=== PATIENT | female | born 1975 | race Caucasian/White ===

== ENCOUNTER 2022-10-04 15:12 | Outpatient (CLI) | payer BC, SELFPAY | END 2022-10-04 15:13 | disposition home or self-care (01) | LOC: NFLDREF 15:12 | PROVIDERS: Visit Provider Physician Assistant | DX: Z01.818 Encounter for other preprocedural examination (principal) | CPT/HCPCS: 80048 ==

== ENCOUNTER 2022-10-12 08:21 | Day surgery (SDC) | payer BC, SELFPAY ==
[2022-10-12 09:10] LABS: Ur HCG Qualitative* Negative (Negative)
[2022-10-12 09:14] VITALS: BP 140/93; PULSE 92; RESP 16; O2SAT 96; BMI 25.9
[2022-10-12] MEDS: LACTATED RINGERS 1000 ML 1,000 ML 100 ML IV (09:15)
[2022-10-12] MEDS: SODIUM CHLORIDE 0.9 % (FLUSH) 10 ML SYRINGE IVF (09:15)
--- NOTE | 2022-10-12 11:09 | W.ANESCHARGE ---
Anesthesia Charges Start Date/Time Anesthesia Start Date: 10/12/22 Anesthesia Start Time: 11:05 Stop Date/Time Anesthesia Stop Date: 10/12/22 Anesthesia Stop Time: 12:04
[2022-10-12] MEDS: BUPIVACAINE 0.25% 30 ML INJECTION (11:25)
[2022-10-12] MEDS: LIDOCAINE 1% MDV 20 ML INJECTION (11:25)
--- NOTE | 2022-10-12 11:57 | W.PM.GYNPROC ---
Procedure Note Date Seen: 10/12/22 Procedure Details: PREOPERATIVE DIAGNOSIS: 1. Menorrhagia. 2. Possible endometrial polyp by ultrasound. POSTOPERATIVE DIAGNOSIS: 1. Menorrhagia. 2. Possible endometrial polyp by ultrasound. NAME OF PROCEDURE: 1. Hysteroscopy. 2. D and C 3. Polypectomy. SURGEON: Calvin. ANESTHESIA: Monitored anesthesia care and paracervical block. COMPLICATIONS: None.. ESTIMATED BLOOD LOSS: 10 mL. FINDINGS: Retroverted uterus. Tiny endocervical polyp. Polypoid endometrial tissue arising from the anterior surface of the endometrium. Normal-appearing tubal ostia bilaterally. PATHOLOGY SPECIMENS: 1. Endometrial curettings and polypoid tissue. PROCEDURE: After obtaining informed consent, the patient was taken to the operating room where she received monitored anesthesia care. She was prepared and draped in the normal sterile fashion, in the dorsal lithotomy position. An open-sided bivalve speculum was introduced into the vagina and the cervix visualized. The anterior lip of the cervix was grasped with a single-tooth tenaculum for traction. A paracervical block was then administered using a total of 20 mL of a 50/50 mixture of 0.25% Marcaine and 1% lidocaine plain. I attempted to sound the uterus, but was unable to advance the sound past the internal cervical os. The smallest Hegar dilator was also impossible to past through the internal cervical os. Tiny cervical dilators were used to establish the direction of the endocervical canal, and the cervix was gently dilated. A hysteroscope was then advanced under direct visualization through the cervix into the uterine cavity. Sterile normal saline was used as distending medium. I had to turn the pressure up from 80 mm Hg to 100 mmHg to visualize uterine cavity well. The uterine cavity was carefully inspected with the findings noted above. Pictures were taken for documentation purposes. The TruClear morcellator was inserted through the operating channel in the hysteroscope. The morcellator was used to remove the polypoid tissue in its entirety. The hysteroscope was then removed. As it was pulled back, the endocervical canal was carefully inspected, and there was no longer any visible evidence of the tiny polyp seen initially. The endometrial lining was then sharply curetted. Very little tissue was obtained, as the endometrial cavity already had a gritty feel throughout. The tenaculum was removed. There was little bleeding from the tenaculum site, which was controlled with direct pressure sponge stick. All instruments were then removed. The patient tolerated the procedure well. Sponge, lap, needle, and instrument counts reported as correct x2. The patient was taken to the recovery room awake in a stable condition.
[2022-10-12 12:00] VITALS: BP 133/82; PULSE 92; RESP 16; TEMP 36.2; O2SAT 96
--- NOTE | 2022-10-12 12:06 | W.ANESCHARGE ---
Anesthesia Charges Start Date/Time Anesthesia Start Date: 10/12/22 Anesthesia Start Time: 11:05 Stop Date/Time Anesthesia Stop Date: 10/12/22 Anesthesia Stop Time: 12:04
[2022-10-12 12:15] VITALS: BP 142/82; PULSE 77; RESP 16; O2SAT 95
[2022-10-12 12:30] VITALS: BP 133/89; PULSE 79; RESP 16; O2SAT 95
[2022-10-12 12:45] VITALS: BP 131/82; PULSE 86; RESP 16; O2SAT 94
== END 2022-10-12 13:14 | disposition home or self-care (01) ==
PROVIDERS: PCP Physician Assistant; Visit Provider Obstetrics & Gynecology
PROC: 0UDB8ZZ Extraction of Endometrium, Via Natural or Artificial Opening Endoscopic (ICD-10-PCS; CPT 58558; principal; 2022-10-12 09:30)
DX: N92.0 Excessive and frequent menstruation with regular cycle (principal); N84.0 Polyp of corpus uteri
CPT/HCPCS: 58558; 00952; 81025; 88305; J1100; J1170; J1885; J2250; J2405; J2704; J3010; J3490; J7120